=== PATIENT | female | born 1970 | race Caucasian/White ===

== ENCOUNTER → 2020-02-14 | Outpatient (REF) | payer BC | LOC: M LAB REF 08:44 | PROVIDERS: ATTEND Physician Assistant | DX: D04.62 Carcinoma in situ of skin of left upper limb, including shoulder (principal) ==

== ENCOUNTER → 2020-03-13 | Outpatient (REF) | payer BC | LOC: M LAB REF 08:41 | PROVIDERS: ATTEND Dermatology | DX: C44.699 Other specified malignant neoplasm of skin of left upper limb, including shoulder (principal) ==

== ENCOUNTER → 2020-08-14 | Outpatient (REF) | payer BC | LOC: M SFHCPLAZ 16:56 | PROVIDERS: ATTEND Physician Assistant | DX: D48.5 Neoplasm of uncertain behavior of skin (principal) ==